=== PATIENT | male | born 1945 | race Caucasian/White ===

== ENCOUNTER → 2016-06-21 | Outpatient (CLI) | payer OTHER ==
[~2016-06-21] MED LIST: ASPI1TAB83 PO; ATOR-26 PO; DILT240C48 PO; FRS/40 PO; HYDR-5688 PO; LSN20 PO; MELO7.5T5 PO; SENNTAB23 PO; TPRSR/50 PO; WARF5TAB90 PO
[2016-06-21 12:26] LABS: HEMATOCRIT 39.5 % (42-52); MEAN CELL VOLUME 98.5 fL (80-100); MEAN CORPUSCULAR HEMOGLOBIN 32.7 pg (25-34); MEAN CORPUSCULAR HGB CONC 33.2 g/dl (32-36); MEAN PLATELET VOLUME 10.9 fL (7.4-10.4); PLATELET COUNT 172 K/uL (130-400); RED BLOOD COUNT 4.01 M/uL (4.7-6.1); WHITE BLOOD COUNT 4.72 K/uL (4.8-10.8)
[2016-06-21 12:50] LABS: ESTIMATED AVERAGE GLUCOSE 111 mg/dl; HA1C FLAG Normal (Normal)
[2016-06-21 13:01] LABS: ALT/SGPT 25 U/L (12-78); AST/SGOT 17 U/L (15-37); BLOOD UREA NITROGEN 11 mg/dl (7-18); BUN/CREATININE RATIO 9.2 (10-20); CALCIUM 8.4 mg/dl (8.5-10.1); CARBON DIOXIDE 25 mmol/L (21-32); CHLORIDE 103 mmol/L (98-107); GLUCOSE 85 mg/dl (70-99); POTASSIUM 3.9 mmol/L (3.5-5.1); SODIUM 140 mmol/L (136-145)
[2016-06-21 13:15] LABS: ALB/GLOB RATIO 1.2 (0.9-2); ALKALINE PHOSPHATASE 93 U/L (45-117); CHOLESTEROL 95 mg/dl (0-200); CHOLESTEROL/HDL RATIO 1.9; HDL CHOLESTEROL 49 mg/dl; LDL CHOLESTEROL CALCULATED 29 mg/dl; THYROID STIMULATING HORMONE 0.835 uIu/ml (0.300-4.500); TRIGLYCERIDES 87 mg/dl (0-150); VERY LOW DENSITY LIPOPROT CALC 17 mg/dl
== END | disposition home or self-care (01) ==
LOC: C.LABBFT 07:33
PROVIDERS: ATTEND Internal Medicine Cardiovascular Disease
DX: R73.01 Impaired fasting glucose (principal); I10 Essential (primary) hypertension; I25.10 Atherosclerotic heart disease of native coronary artery without angina pectoris

== ENCOUNTER → 2017-01-04 | Outpatient (CLI) | payer OTHER ==
[2017-01-04 12:32] LABS: BASO % 0.6 %; BASO ABS # 0.03 K/uL (0-0.2); COMPLETE YES; HEMATOCRIT 41.9 % (42-52); IG% 0.2 %; LYMPH % 17.8 %; LYMPH ABS # 0.85 K/uL (1.2-3.4); MEAN CELL VOLUME 99.3 fL (80-100); MEAN CORPUSCULAR HEMOGLOBIN 33.2 pg (25-34); MEAN CORPUSCULAR HGB CONC 33.4 g/dl (32-36); MEAN PLATELET VOLUME 11.2 fL (7.4-10.4); MONO % 12.6 %; NEUT % 64.8 %; PLATELET COUNT 156 K/uL (130-400); RED BLOOD COUNT 4.22 M/uL (4.7-6.1); WHITE BLOOD COUNT 4.78 K/uL (4.8-10.8)
[2017-01-04 12:48] LABS: ESTIMATED AVERAGE GLUCOSE 111 mg/dl; HA1C FLAG Normal (Normal)
[2017-01-04 12:59] LABS: ALT/SGPT 26 U/L (12-78); BLOOD UREA NITROGEN 19 mg/dl (7-18); BUN/CREATININE RATIO 15.8 (10-20); CALCIUM 8.9 mg/dl (8.5-10.1); CARBON DIOXIDE 32 mmol/L (21-32); CHLORIDE 106 mmol/L (98-107); CHOLESTEROL 97 mg/dl (0-200); GLUCOSE 87 mg/dl (70-99); POTASSIUM 4.2 mmol/L (3.5-5.1); SODIUM 142 mmol/L (136-145); TRIGLYCERIDES 91 mg/dl (0-150); VERY LOW DENSITY LIPOPROT CALC 18 mg/dl
[2017-01-04 13:02] LABS: ALB/GLOB RATIO 1.1 (0.9-2); ALKALINE PHOSPHATASE 100 U/L (45-117); AST/SGOT 24 U/L (15-37); CHOLESTEROL/HDL RATIO 2.1; HDL CHOLESTEROL 46 mg/dl; LDL CHOLESTEROL CALCULATED 33 mg/dl
== END | disposition home or self-care (01) ==
LOC: C.LABBFT 10:39
PROVIDERS: ATTEND Internal Medicine Cardiovascular Disease
DX: I25.10 Atherosclerotic heart disease of native coronary artery without angina pectoris (principal); R73.01 Impaired fasting glucose

== ENCOUNTER → 2017-07-10 | Outpatient (CLI) | payer OTHER ==
[2017-07-10 12:34] LABS: BASO % 0.6 %; BASO ABS # 0.04 K/uL (0-0.2); EOS % 2.7 %; EOS ABS # 0.17 K/uL (0-0.5); HEMATOCRIT 45.9 % (42-52); HEMOGLOBIN 15.1 g/dL (14.0-18.0); IG# 0.01 K/uL (0.00-0.02); LYMPH % 16.5 %; LYMPH ABS # 1.04 K/uL (1.2-3.4); MEAN CELL VOLUME 99.6 fL (80-100); MEAN CORPUSCULAR HEMOGLOBIN 32.8 pg (25-34); MEAN CORPUSCULAR HGB CONC 32.9 g/dl (32-36); MEAN PLATELET VOLUME 11.7 fL (7.4-10.4); MONO % 9.8 %; MONO ABS # 0.62 K/uL (0.11-0.59); NEUT % 70.2 %; NEUT ABS # 4.43 K/uL (1.4-6.5); PLATELET COUNT 178 K/uL (130-400); RED CELL DISTRIBUTION WIDTH CV 12.6 % (11.5-14.5); RED CELL DISTRIBUTION WIDTH SD 45.7 fL (36.4-46.3); WHITE BLOOD COUNT 6.31 K/uL (4.8-10.8)
[2017-07-10 12:52] LABS: HEMOGLOBIN A1C 5.7 % (4.5-5.6)
[2017-07-10 12:54] LABS: ALBUMIN 3.8 gm/dl (3.4-5.0); ALT/SGPT 27 U/L (12-78); AST/SGOT 18 U/L (15-37); BLOOD UREA NITROGEN 17 mg/dl (7-18); CARBON DIOXIDE 29 mmol/L (21-32); CREATININE 1.21 mg/dl (0.60-1.40); GLUCOSE 102 mg/dl (70-99); POTASSIUM 4.1 mmol/L (3.5-5.1); SODIUM 139 mmol/L (136-145)
[2017-07-10 12:57] LABS: ALKALINE PHOSPHATASE 97 U/L (45-117); CHOLESTEROL 142 mg/dl (0-200); LDL CHOLESTEROL CALCULATED 59 mg/dl; TOTAL PROTEIN 7.6 gm/dl (6.4-8.2)
== END | disposition home or self-care (01) ==
LOC: C.LABBFT 08:25
PROVIDERS: ATTEND Internal Medicine
DX: I25.10 Atherosclerotic heart disease of native coronary artery without angina pectoris (principal); R73.01 Impaired fasting glucose

== ENCOUNTER 2022-04-27 05:57 | Inpatient (IN) ==
--- NOTE | 2022-04-10 15:42 | PAT Medication Instructions ---
Medication Instructions Date of Service April 10, 2022 Home Medications Medication Instructions Recorded atorvastatin 80 mg tablet 80 mg PO DAILY #90 tabs 06/17/21 carvedilol 25 mg tablet 25 mg PO BID #180 tabs 06/17/21 diltiazem HCl 240 mg 240 mg PO DAILY #90 caps 06/17/21 capsule,extended release 24 hr lisinopril 40 mg tablet 40 mg PO DAILY #90 tabs 06/17/21 methocarbamol 750 mg tablet 750 mg PO Q6H PRN back spasm #12 08/23/21 tabs cyclobenzaprine 5 mg tablet 5 mg PO TID PRN muscle spasm #12 10/07/21 tabs atorvastatin 80 mg tablet 80 mg PO DAILY carvedilol 25 mg tablet 25 mg PO BID diltiazem HCl 240 mg capsule,extended release 24 hr 240 mg PO DAILY lisinopril 40 mg tablet 40 mg PO DAILY aspirin 81 mg tablet,delayed release 81 mg PO HS furosemide 80 mg tablet (Lasix) See Rx Instructions .Route .COMPLEX warfarin 5 mg tablet See Rx Instructions .Route .COMPLEX methocarbamol 750 mg tablet 750 mg PO Q6H PRN cyclobenzaprine 5 mg tablet 5 mg PO TID PRN Continue as directed atorvastatin 80 mg tablet 80 mg PO DAILY diltiazem HCl 240 mg capsule,extended release 24 hr 240 mg PO DAILY ASK your prescriber and surgeon warfarin 5 mg tablet See Rx Instructions .Route .COMPLEX DO NOT take the morning of surgery lisinopril 40 mg tablet 40 mg PO DAILY furosemide 80 mg tablet (Lasix) See Rx Instructions .Route .COMPLEX methocarbamol 750 mg tablet 750 mg PO Q6H PRN cyclobenzaprine 5 mg tablet 5 mg PO TID PRN Take morning of surgery With a small sip of water, OTHERWISE NOTHING TO EAT OR DRINK AFTER MIDNIGHT: carvedilol 25 mg tablet 25 mg PO BID Take evening before surgery carvedilol 25 mg tablet 25 mg PO BID aspirin 81 mg tablet,delayed release 81 mg PO HS methocarbamol 750 mg tablet 750 mg PO Q6H PRN cyclobenzaprine 5 mg tablet 5 mg PO TID PRN Other Notes If you have any questions please call us at [phone] or [phone] or [phone] or [phone]
--- NOTE | 2022-04-13 11:16 | Anesthesiology Consultation ---
Date of Service April 13, 2022 Assessment & Plan (1) Encounter for pre-operative examination: - Check coags AM DOS (warfarin instructions per surgeon/prescriber) - COVID screening: Per assessment on 04/13: No known COVID-19 positive contacts or current COVID-19 related symptoms. Travel screen negative. Patient vaccinated. At surgeon discretion if preop Covid testing being done. - Cardiology office visit (11/25/21): "Multivessel CAD status post CABG x 3: No angina. Continue high-intensity statin therapy. Continue beta-portillo therapy.. Cardiomyopathy: Likely ischemic in origin. Mildly hypervolemic. Systolic function has normalized following revascularization.. He had hyperkalemia in the past while on spironolactone. Continue medical therapy.. Atrial fibrillation: Permanent atrial fibrillation. Heart rate remains well controlled on current regimen. Asymptomatic. Continue anticoagulation for stroke risk reduction.. He may hold warfarin for 5 days for upcoming pain management procedure. Bridging is not necessary.. Chronic diastolic CHF: Class II. Appears mildly hypervolemic today.. Aortic Stenosis: Non severe. Discussed with patient. Repeat echo in 2-4 years.. Hypertension: Blood pressure top-normal today. Blood pressure at home slightly better. No changes made at this time." Diuretics adjusted. - Preop EKG shows new RBBB compared to previous + LAFB- ? new bifascicular block. Awaiting cardiology workload note response (Dr. Barrera/[facility]). - Awaiting surgeon-ordered PCP preop evaluation ([facility], appt ?04/12 or 04/20). Chart Review Chart Review: Acceptable Risk for Surgery and Patient seen in Pre Admission Testing Consults Requested none Teaching & Discussion Pre-Anesthesia Teaching/Discussion Notes: Instructed NPO after midnight before surgery,except medications with 15 cc of water. Medication instructions provided according to the PAT guidelines. ASA ASA4 Proposed Anesthesia Anesthesia Type: General Anesthesia Line Insertion: Arterial line Risk / Benefits Reviewed With: PT / POA / Parent / Guardian, Accepts Plan and Informed Consent Obtained History Surgery Operation Date: 04/27/22 07:45 Proposed Procedures p L5-S1 Decompression and Fusion, Spinal Cord Monitoring - Gurpreet Flanagan, Height/Weight Height: 5 ft 7 in Weight: 133 kg Allergies Allergy/AdvReac Type Severity Reaction Status Date / Time No Known Allergies Allergy Verified 04/20/22 09:01 Medications Home Medications Medication Instructions Recorded Confirmed Last Taken atorvastatin 80 mg tablet 80 mg PO DAILY #90 tabs 06/17/21 04/27/22 04/26/22 07:00 diltiazem HCl 240 mg 240 mg PO DAILY #90 caps 06/17/21 04/27/22 04/26/22 07:00 capsule,extended release 24 hr lisinopril 40 mg tablet 40 mg PO DAILY #90 tabs 06/17/21 04/27/22 04/26/22 07:00 aspirin 81 mg tablet,delayed 81 mg PO HS 08/12/21 04/27/22 04/26/22 19:30 release warfarin 5 mg tablet 2.5 mg 08/12/21 04/20/22 04/21/22 19:30 carvedilol 25 mg tablet 25 mg PO BID 04/17/22 04/20/22 04/26/22 19:30 tetanus-diphtheria toxoids-Td 2 Lf 0.5 ml IM ONCE #5 mL 04/17/22 04/20/22 Unknown unit-2 Lf unit/0.5 mL IM suspension (TDVAX) furosemide 80 mg tablet (Lasix) See Rx Instructions .Route .COMPLEX 04/19/22 04/20/22 04/25/22 07:00 Active Medications Generic Name Dose Route Start Last Admin Trade Name Kylee PRSiddharth Reason Stop Dose Admin Acetaminophen 1,000 mg 04/27/22 06:00 04/27/22 06:50 Acetaminophen 500 Mg Tab PO 04/27/22 18:00 1,000 mg PREOP ANSHU Administration Celecoxib 200 mg 04/27/22 06:00 04/27/22 06:50 Celebrex 200 Mg Cap PO 04/27/22 18:00 200 mg PREOP ANSHU Administration Gabapentin 300 mg 04/27/22 06:00 04/27/22 06:50 Gabapentin 300 Mg Cap PO 04/27/22 18:00 300 mg PREOP ANSHU Administration Lactated Ringer's 1,000 mls @ 15 mls/hr 04/27/22 06:00 04/27/22 06:30 Lr IV 04/28/22 05:59 15 mls/hr .Q24H ANSHU Administration NPO Date Last Intake of Fluids: 04/26/22 Time Last Intake of Fluids: 22:00 Date Last Intake of Solids: 04/26/22 Time Last Intake of Solids: 18:00 Past Medical History Medical History Aortic stenosis Mild aortic stenosis (ROSAMARIA 1.3cm2, MG 9.2mmhg) per 10/2020 echo Arthritis Atrial fibrillation BPH (benign prostatic hyperplasia) CAD (coronary artery disease) s/p CABG x3 (NAM to LAD, SVG to OM1, SVG to D1/2015) Chronic diastolic HF (heart failure) History of kidney stones HTN (hypertension) Hyperlipidemia Morbid obesity Obstructive sleep apnea "Mild", no device used Tricuspid regurgitation Mild to moderate TR per 10/2020 echo Exercise / Class Metabolic Activity III < 4 Walking/Shop/Light housework Past Family History Family History Other Arthritis Cancer Coronary arteriosclerosis Hypertension No family history of adverse response to anesthesia Past Surgical History Surgical History H/O colonoscopy tubular adenoma, hyperplastic polyp and anal mass of uncertain etiology History of cardiac cath 02/2015 > referred for CABG History of cataract surgery RT/LEFT History of lithotripsy History of open reduction and internal fixation (ORIF) procedure RT FEMUR History of surgery Kidney stone extraction History of tonsillectomy History of tooth extraction S/P CABG x 3 NAM to LAD, SVG to OM1, SVG to D1 ([facility] [place], 2015) Past Anesthesia History No Hx of Anesthesia Complications and No Family Hx of Anesthesia Complications History of PONV No Hx of PONV and No Hx of Motion Sickness Social History Smoking Status: Never smoker Do You Dip or Chew Tobacco: No Hx Alcohol Use: No Hx Substance Use: No substance use type: does not use Review of Systems Patient denies chest pain, shortness of breath, dyspnea on exertion, fever, chills, cough, wheezing, palpitations. Physical Exam Vital Signs Last Vital Signs Temp 36.4 C L 04/27/22 06:38 Pulse 96 H 04/27/22 06:38 Resp 20 04/27/22 06:38 BP 170/108 H 04/27/22 06:38 Pulse Ox 94 04/27/22 06:38 O2 Del Method 04/27/22 06:38 VITALS BP 160/95 P 77 TEMP 97.7 SP02 96%RA RESP 16 PHYSICAL Full cervical extension range of motion. Full TMJ range of motion. TMD 4 finger breaths Mallampati Score 1 Dentition: full upper plate Lungs: clear throughout to auscultation Cardiac: regular rate, irregular rhythm, no murmurs noted Spine: normal Carotid arteries: negative bruit Extremities: no edema Short neck Constitutional + morbidly obese; no acute distress ENMT Mouth: + dentition abnormality and + dentures Thyromental Distance: > or= 3.5 Finger Breadths Mallampati Class: II Neck normal visual inspection and trachea midline; neck extension not limited Respiratory + uses accessory muscles Auscultation: + diminished lung sounds and + wheezes Cardiovascular Rate/Rhythm: + abnormal rate (afib) and + abnormal rhythm (afib) Heart Sounds: + murmur (RUSB, 1-2/6) Vessels: no carotid bruit Musculoskeletal Spine: normal cervical ROM and no pain with cervical ROM Extremities: extremities normal to inspection; full ROM of extremities Neurologic moves all extremities Motor/Sensory: no sensory deficit Psychiatric Orientation: alert and oriented x 3 Lab Results Anesthesia Preop Results Results Anesthesia Widget: WBC 6.00 K/ul (4.8-10.8) 04/13/22 Hgb 15.0 g/dl (14.0-18.0) 04/13/22 Hct 44.9 % (40.1-51.0) 04/13/22 Plt 160 K/uL (130-400) 04/13/22 Na 140 mmol/L (136-145) 04/13/22 K 4.6 mmol/L (3.5-5.1) 04/13/22 Cl 101 mmol/L (98-107) 04/13/22 CO2 34 mmol/L (21-32) H 04/13/22 BUN 17 mg/dl (6-23) 04/13/22 Creat 1.26 mg/dl (0.6-1.4) 04/13/22 Glucose Level 97 mg/dl (70-99(Fasting)) 04/13/22 PT 11.3 Seconds (9.0-12.0) 04/27/22 PTT 27.9 Seconds (21.0-31.0) 04/27/22 INR 1.1 (0.9-1.1) 04/27/22 HA1c 5.6 % (4.5-5.6) 04/17/22 Urine Color Yellow 04/13/22 Urine Appearance Clear (Clear) 04/13/22 Urine pH 6.5 (4.5-7.5) 04/13/22 Urine Specific [place] 1.007 (1.000-1.030) 04/13/22 Urine Protein Negative (Negative) 04/13/22 Urine Glucose (UA) Negative (Negative) 04/13/22 Urine Ketones Negative (Negative) 04/13/22 Urine Blood Negative (Negative) 04/13/22 Urine Nitrite Negative (Negative) 04/13/22 Urine Bilirubin Negative (Negative) 04/13/22 Urine Urobilinogen Negative (Negative) 04/13/22 Urine Leukocyte Esterase Negative (Negative) 04/13/22 SARS-CoV-2, RNA, NAAT NEGATIVE (NEGATIVE) 04/27/22 Blood Type O Positive 04/13/22 Antibody Screen NEGATIVE 04/13/22 Testing Laboratory Results PT 11.3 Seconds (9.0-12.0) 04/27/22 06:15 INR 1.1 (0.9-1.1) 04/27/22 06:15 APTT 27.9 Seconds (21.0-31.0) 04/27/22 06:15 Electrocardiogram Date: 04/13/22 A. fib at 71 bpm. LAFB. RBBB. LVH. Chest X-Ray Date: 04/13/22 FINDINGS: PA and lateral chest radiographs are compared to study dated 03/04/2018 and correlated with chest CT dated 01/31/2015. The patient is status post midline sternotomy. The heart is enlarged noting atherosclerotic calcification of the thoracic aorta. The pulmonary vasculature is noncongested. Chronic interstitial thickening is similar to previous. The lungs and pleural spaces are clear noting bibasilar scarring/atelectasis. There is no pneumothorax. The skeletal structures are osteopenic. The bony thorax appears intact. A peripherally calcified splenic cyst is again seen in the left upper quadrant. IMPRESSION: Cardiomegaly with no active disease in the chest. Echocardiogram Date: 10/28/20 EF 55-60%. No RWMA. Moderate cLVH. Mild RVD. Moderate biatrial dilation. Mild aortic stenosis (ROSAMARIA 1.3cm2, MG 9.2mmhg). Mild to moderate TR. No significant change compared to prior study 02/21/2018 per report. Cardiac Catheterization Date: 03/18/15 Left heart catheterization: 1. Left ventriculogram was not performed given recent adequate echo images. 2. No significant aortic stenosis. Peak to peak gradient across the aortic valve was 0. 3. Normal LVEDP; 9 mm Hg. Right heart catheterization: 1. Normal pulmonary capillary wedge pressure. V-wave 21/mean 11mmHg. 2. No significant pulmonary hypertension. PA pressure 30/14 with a mean of 19 mm Hg. 3. Normal right ventricular pressure. 30/2 with EDP 10 mmHg. 4. Normal right atrial pressure. A-wave 8/V-wave 11/mean 5 mmHg. Notes: Tortuous right subclavian/innominate artery. Procedure was completed via the right radial artery, but manipulation of the catheter was difficult. No complication. Impression: Multivessel CAD. Normal filling pressures. No aortic stenosis. Normal cardiac output. > *Subsequent CABG performed* COVID-19 Risk Screen Screening Information COVID-19 Screen Date: 04/13/22 Exposure 21 Days Family/Household +COVID Last 21 Days: No Exposure 10 Days Any COVID Exposure Last 10 Days: No Symptoms Last 10 Days Experienced COVID Sx Last 10 Days: No + COVID 0-90 Days COVID + in Last 0-90 Days: No
[2022-04-27] MEDS ORDERED: GABAPENTIN 300 MG CAP PO SCH (06:00)
[2022-04-27] MEDS ORDERED: LR 15ML/HR IV SCH (06:00)
[2022-04-27] MEDS ORDERED: ACETAMINOPHEN 500 MG TAB PO SCH (06:00)
[2022-04-27] MEDS ORDERED: CeleBREX 200 MG CAP PO SCH (06:00)
[2022-04-27 06:37] LABS: INR 1.1 (0.9-1.1); Partial Thromboplastin Time 27.9 Seconds (21.0-31.0); Prothrombin Time 11.3 Seconds (9.0-12.0)
[2022-04-27] MEDS ORDERED: DEXAMETHASONE SOD INJ 4 MG/ML VIAL ONE (07:10)
[2022-04-27] MEDS ORDERED: ONDANSETRON INJ 2 MG/ML 2 ML VIAL ONE ×2 (07:10→09:01)
[2022-04-27] MEDS ORDERED: NEOSTIGMINE METHYLSULFATE 1 MG/ML 10ML VIAL ONE (07:10)
[2022-04-27] MEDS ORDERED: GLYCOPYRROLATE 0.2 MG/ML VIAL ONE (07:10)
[2022-04-27] MEDS ORDERED: PROPOFOL IV EMULSION 10 MG/ML 20 ML VIAL IV ONE (07:10)
[2022-04-27] MEDS ORDERED: fentaNYL citrate 100 MCG/2 ML VIAL ONE (07:11)
[2022-04-27] MEDS ORDERED: LIDOCAINE 2% MPF LOCAL 5 ML VIAL INFIL ONE (07:17)
[2022-04-27] MEDS ORDERED: ROCURONIUM BROMIDE 10 MG/ML 5 ML VIAL IV ONE ×3 (07:17→09:01)
[2022-04-27] MEDS ORDERED: LARYING-O-JET KIT (LTA) ONE (07:17)
--- NOTE | 2022-04-27 07:41 | History & Physical Bridge Note ---
Date of Service April 27, 2022 History & Physical Bridge Note I have examined the patient, reviewed the History & Physical and in the interval since the performance of the History & Physical I have noted the following changes of clinical significance: no changes noted
--- NOTE | 2022-04-27 07:42 | History & Physical Report ---
Date of Service April 27, 2022 Assessment & Plan (1) Neurogenic claudication due to lumbar spinal stenosis: Plan: L5-S1 decompression and fusion, possible L4-L5 History of Present Illness Chief Complaint: Back and leg pain Primary Care Provider: Anika Hyman MD This is a 69-year-old male presents with chronic persistent back and leg pain. Failing course of nonoperative care is here for surgical invention. Allergies Allergy/AdvReac Type Severity Reaction Status Date / Time No Known Allergies Allergy Verified 04/20/22 09:01 Home Medications Medication Instructions Recorded Confirmed Type atorvastatin 80 mg tablet 80 mg PO DAILY #90 tabs 06/17/21 04/27/22 Rx diltiazem HCl 240 mg 240 mg PO DAILY #90 caps 06/17/21 04/27/22 Rx capsule,extended release 24 hr lisinopril 40 mg tablet 40 mg PO DAILY #90 tabs 06/17/21 04/27/22 Rx aspirin 81 mg tablet,delayed 81 mg PO HS 08/12/21 04/27/22 History release warfarin 5 mg tablet 2.5 mg 08/12/21 04/20/22 History carvedilol 25 mg tablet 25 mg PO BID 04/17/22 04/20/22 History tetanus-diphtheria toxoids-Td 2 Lf 0.5 ml IM ONCE #5 mL 04/17/22 04/20/22 Rx unit-2 Lf unit/0.5 mL IM suspension (TDVAX) furosemide 80 mg tablet (Lasix) See Rx Instructions .Route .COMPLEX 04/19/22 04/20/22 History Past Med/Surg History Medical History Aortic stenosis Mild aortic stenosis (ROSAMARIA 1.3cm2, MG 9.2mmhg) per 10/2020 echo Arthritis Atrial fibrillation BPH (benign prostatic hyperplasia) CAD (coronary artery disease) s/p CABG x3 (NAM to LAD, SVG to OM1, SVG to D1/2016) Chronic diastolic HF (heart failure) History of kidney stones HTN (hypertension) Hyperlipidemia Morbid obesity Obstructive sleep apnea "Mild", no device used Tricuspid regurgitation Mild to moderate TR per 10/2020 echo Surgical History H/O colonoscopy tubular adenoma, hyperplastic polyp and anal mass of uncertain etiology History of cardiac cath 02/2015 > referred for CABG History of cataract surgery RT/LEFT History of lithotripsy History of open reduction and internal fixation (ORIF) procedure RT FEMUR History of surgery Kidney stone extraction History of tonsillectomy History of tooth extraction S/P CABG x 3 NAM to LAD, SVG to OM1, SVG to D1 ([facility] [place] [place], 2016) Family History Other Arthritis Cancer Coronary arteriosclerosis Hypertension No family history of adverse response to anesthesia Social History (Updated 04/08/21 @ 15:04 by Janice Doe LPN) Smoking Status: Never smoker Tobacco Type: Cigarettes Second Hand Exposure: Yes ( A CHILD); Do You Dip or Chew Tobacco: No; Hx Alcohol Use: No Hx Substance Use: No Preferred Language: Swedish Records Analysis Manager Required: No Beliefs That Will Affect Care: None marital status: Current Living Situation: Significant Other current occupational status: retired Feels Safe at Home: Yes Safety Concerns: Feels Safe At This Time caffeine: No Dental Care, Regularly: No Physical Activity Frequency: 3-4 Times per Week Physical Activity Frequency Comment: Active, goes camping and walking Assistive Devices: Denture - Upper, Glasses and Walker Physical Exam Physical Exam: Patient is alert and oriented Heart regular rhythm Lungs clear Results & Data Results & Data ([facility]) Vital Signs (Past 12 Hours) Vital Signs Temp Pulse Resp BP Pulse Ox O2 Del Method 04/27/22 06:38 36.4 C L 96 H 20 170/108 H 94 Room Air
[2022-04-27] MEDS ORDERED: ceFAZolin 330 MG/ML 1 GM VIAL ONE (07:43)
[2022-04-27] MEDS ORDERED: BUPIVACAINE/EPINEPHRINE 0.5% MPF 1:200,000 30 ML VIAL ONE (07:43)
[2022-04-27] MEDS ORDERED: PHENYLEPHRINE 100MCG/ML 5ML SYR ONE (08:37)
[2022-04-27] MEDS ORDERED: PHENYLEPHRINE HCL 10 MG/ML VIAL ONE (08:37)
[2022-04-27] MEDS ORDERED: ALBUMIN HUMAN 5% 12.5 GM/250 ML VIAL IV ONE (08:50)
[2022-04-27] MEDS ORDERED: FLOSEAL HEMOSTATIC MATRIX 10ML TOP ONE (08:51)
[2022-04-27] MEDS ORDERED: SUGAMMADEX SODIUM 200 MG/2 ML VIAL IV ONE (08:51)
[2022-04-27] MEDS ORDERED: ePHEDrine sulfate 50 MG/ML AMP IV PRN (09:12)
[2022-04-27] MEDS ORDERED: PROMETHAZINE HCL 12.5 MG in SODIUM CHLORIDE 0.9% 50 ML IV PRN ×2 (09:12→12:15)
[2022-04-27] MEDS ORDERED: LABETALOL HCL IV 5 MG/ML 20ML IV PRN (09:12)
[2022-04-27] MEDS ORDERED: FLUMAZENIL 0.1 MG/1 ML 10 ML VIAL IV PRN (09:12)
[2022-04-27] MEDS ORDERED: ONDANSETRON INJ 2 MG/ML 2 ML VIAL IV PRN ×2 (09:12→12:15)
[2022-04-27] MEDS ORDERED: HYDROmorphone INJ 1 MG/ML SYRINGE IV PRN ×2 (09:12→12:15)
[2022-04-27] MEDS ORDERED: ATROPINE SULFATE 0.1 MG/ML 10ML SYR IV PRN (09:12)
[2022-04-27] MEDS ORDERED: NALOXONE HCL 0.4 MG/1 ML VIAL/CARP IV PRN ×2 (09:12→12:15)
[2022-04-27] MEDS ORDERED: fentaNYL citrate 100 MCG/2 ML VIAL IV PRN (09:12)
[2022-04-27 10:05] LABS: iSTAT Creatinine 1.1 mg/dl (0.6-1.3); iSTAT Hemoglobin 11.9 g/dl (14.0-18.0); iSTAT Ionized Calcium 1.11 mmol/l (1.12-1.32)
--- NOTE | 2022-04-27 10:30 | Operative Report ---
Post Operative Report Pre & Post Diagnosis Operation Date: 04/27/22 07:45 Pre-Op Diagnosis: L4-5 foraminal disc herniation, L5-S1 spondylolisthesis, lumbar spinal stenosis with neurogenic claudication, morbid obesity, Post-Op Diagnosis: Same I identified the patient and participated in the time-out.: Yes Procedure Operation Date: 04/27/22 07:45 Actual Procedures #1 lumbar decompression bilateral facetectomies and foraminotomies L3-L4, L4-5 and L5-S1. #2 posterior spinal fusion L4-L5 L5-S1. #3 placement posterior instrumentation L4-L5 L5-S1. #4 interbody fusion L4-L5 L5-S1. #5 placement of Spira 15 x 26 mm cage at L4-L5 L5-S1. #6 placement locally harvested morselized autograft and posterior gutters. #7 placement of I factor combined with V toss interbody space and posterior gutters. Surgeon Gurpreet Flanagan, DO [employer] Tender Vinnie Bashir Estimated Blood Loss 1,200 Findings See Below The patient is 5 foot 7 weighing over 134 kg with a BMI in excess of 46 this combined with an EBL of greater than 1200 cc created significant technical difficulty requiring at least 75% increase in the operative time. Specimens None Indications This is a 69-year-old male who presents with emergent diagnosis of failed course of nonoperative care is here for surgical invention. Description of Procedure Patient was met with identified informed consent obtained. Patient was then taken to the operative suite underwent a patient placed in a prone position the [place] table top Tomasz frame. All bony prominences well-padded eyes inspected to ensure no external pressure placed upon the. This point lumbar spine was prepped and draped no sterile fashion. Sharp dissection with the assistance of bradycardia from down to and exposing the lamina and transverse processes of L4- L5 and sacral ala bilaterally. Obvious bilateral L5 pars defect identified a complete laminectomy L5 L4 and partial laminectomy L3 was performed including bilateral medial facetectomies and foraminotomies addressing all spinal stenosis. Also had to perform a complete facetectomy at L4-L5 on the right to remove the foraminal and extraforaminal disc herniation creating significant compression of the L4 nerve root. This subsequently created iatrogenic instability requiring fusion at this level. After this complete pedicle screws were placed at L4-L5 and S1 levels bilaterally with assistance of fluoroscopy and the proper sized jamia contoured and placed. By way the transforaminal approach on the right a complete discectomy of L4-L5 was performed endplates curetted to subcortically bone and a 15 x 26 mm spiral cage filled with I factor tapped in position. Then proceeded to L4-L5 again by way of a transforaminal portion right performed endplates curetted to subcortically bone and again a 15 x 26 mm spiral cage with I factor tapped in position. At the procedure L5-S1. Again complete discectomy formed by way of a transforaminal approach to the right. Endplates. To subcortically bone and a 15 x 26 mm spiral cage with I factor tapped in position. Rods were then compressed locked in final position bilaterally. The transverse processes of L4-L5 and sacral ala burred to subcortical bleeding bone. I factor model V toss and locally harvested morselized autograft was placed in the posterior gutters. 15 round NANETTE drain inserted. The incision was then closed with 1 Vicryl the fascia 2-0 Vicryl subcutaneously and 4 Monocryl for final skin closure. Steri-Strips dressings placed. Patient waken taken to PACU in stable condition. Please note spinal cord monitoring was utilized at the procedure no changes noted. Lastly Vinnie Bashir was present at the entire surgeon while the patient positioning complex portion of the surgery and final skin closure. I attest to the content of the Intraoperative Record and any orders documented therein. Any exceptions are noted below.
[2022-04-27] MEDS ORDERED: SODIUM CHLORIDE 0.9% 50 ML BAG ONE (11:04)
[2022-04-27] MEDS ORDERED: PROMETHAZINE HCL INJ 25 MG/ML 1 ML VIAL ONE (11:05)
[2022-04-27 11:23] LABS: Hematocrit (blood only) 35.7 % (40.1-51.0); Hemoglobin 11.9 g/dl (14.0-18.0)
--- NOTE | 2022-04-27 11:29 | Fluoroscopy Report ---
FL lumbar spine 2-3V CLINICAL HISTORY: L5-S1 DECOMP/FUSION TECHNIQUE: 2 views were obtained with the C-arm in the OR with the above procedure. Total fluoroscopy time was 32.1 seconds. Radiation dose was 32.96 mGy. Comparison: None available at the time of this dictation. FINDINGS/IMPRESSION: Intraoperative images were obtained of L4-S1 decompression and fusion. Please correlate with intraoperative fluoroscopy and operative report. ACT 112: Negative or not required by law. Electronically signed by: Travis Beltran M.D. 04/27/2022 11:27 AM
[2022-04-27] MEDS ORDERED: SODIUM CHLORIDE 0.9% 1000ML 1,000 ML IV SCH (12:15)
[2022-04-27] MEDS ORDERED: FAMOTIDINE 20 MG TAB PO PRN (12:15)
[2022-04-27] MEDS ORDERED: ALUMINUM/MAGNESIUM SUSP 30 ML UDC PO PRN (12:15)
[2022-04-27] MEDS ORDERED: DO NOT ADMINISTER PNEUMOCOCCAL VACCINE PRN (12:15)
[2022-04-27] MEDS ORDERED: MAGNESIUM HYDROXIDE SUSP 30 ML UDC PO PRN (12:15)
[2022-04-27] MEDS ORDERED: HYDROmorphone INJ 0.5 MG/0.5 ML SYR IV PRN (12:15)
[2022-04-27] MEDS ORDERED: DO NOT ADMINISTER FLU VACCINE PRN (12:15)
[2022-04-27] MEDS ORDERED: diphenhydrAMINE Capsule 25 MG CAP PO PRN (12:15)
[2022-04-27] MEDS ORDERED: LORazepam 0.5 MG TAB PO PRN (12:15)
[2022-04-27] MEDS ORDERED: METOCLOPRAMIDE HCL INJ 5 MG/ML 2 ML VIAL IV PRN (12:15)
[2022-04-27] MEDS ORDERED: oxyCODONE HCL IR 5 MG TAB (IMMEDIATE RELEASE) PO PRN (12:15)
[2022-04-27] MEDS ORDERED: ACETAMINOPHEN 500 MG TAB PO PRN (12:15)
[2022-04-27] MEDS ORDERED: traMADol HCL 50 MG TABLET PO PRN (12:15)
[2022-04-27] MEDS ORDERED: hydrOXYzine HCl 25 MG TAB PO PRN (12:15)
[2022-04-27] MEDS ORDERED: SOD PHOSPHATE/SOD BIPHOSPHATE ENEMA 132 ML BTL PR PRN (12:15)
[2022-04-27] MEDS ORDERED: bisacodyL 10 MG SUPP PR PRN (12:15)
[2022-04-27] MEDS ORDERED: ONDANSETRON 4 MG OD TAB PO PRN (12:15)
[2022-04-27] MEDS ORDERED: LORazepam 2 MG/1 ML VIAL IV PRN (12:15)
[2022-04-27] MEDS ORDERED: ACETAMINOPHEN 1,000 MG/100 ML VIAL IV PRN (12:15)
--- NOTE | 2022-04-27 12:42 | Anesthesiology Progress Note ---
Date of Service April 27, 2022 Anesthesia Post Procedure Vital Signs Vital Signs: Temp Pulse Pulse Resp BP BP Pulse Ox 04/27/22 12:15 36.6 C 83 15 154/89 H 98 04/27/22 12:00 90 16 142/94 H 95 04/27/22 11:50 36.9 C 87 20 161/94 H 95 04/27/22 11:20 91 H 20 180/84 H 150/95 H 97 04/27/22 11:10 88 20 150/92 H 136/90 97 04/27/22 11:40 86 18 159/92 H 97 04/27/22 11:30 88 20 169/89 H 141/92 H 97 04/27/22 11:00 83 16 178/93 H 152/107 H 96 04/27/22 10:55 36.1 C L 84 16 174/103 H 96 04/27/22 06:38 36.4 C L 96 H 20 170/108 H 94 O2 Del Method O2 Flow Rate 04/27/22 12:15 Nasal Cannula 2 04/27/22 12:00 Nasal Cannula 2 04/27/22 11:50 Nasal Cannula 2 04/27/22 11:20 Room Air 04/27/22 11:10 Oxymask 3 04/27/22 11:40 Nasal Cannula 2 04/27/22 11:30 Nasal Cannula 2 04/27/22 11:00 Oxymask 6 04/27/22 10:55 Oxymask 6 04/27/22 06:38 Room Air Pain Intensity Lower Back: Pain Intensity: 3 Right Thigh: Pain Intensity: 3 Transfer of Care Handoff Completed per policy Notes Mental Status: alert / awake / arousable Patient Amnestic to Procedure: Yes Nausea / Vomiting: adequately controlled Pain: adequately controlled Airway Patency, RR, SpO2: stable & adequate BP & HR: stable & adequate Hydration State: stable & adequate Anesthetic Complications: no major complications apparent
--- NOTE | 2022-04-27 13:33 | Hospitalist Consultation ---
Date of Consultation April 27, 2022 Assessment & Plan (1) Lumbar back pain with radiculopathy affecting right lower extremity: Patient underwent L4-S1 decompression fusion Dr. Flanagan 04/27 with EBL of 1.2 L will check hgb in the evening of reportedly pt did not take any meds this am and only took an aspirin last night (2) Chronic diastolic HF (heart failure): Patient has a history of stable chronic diastolic heart failure typically on Coreg 25 twice daily diltiazem 240 daily Lasix 80 a day. These medications will be continued. 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 At 1 point time the patient will need to be begin his warfarin therapy for his atrial fibrillation thromboembolic prophylaxis. Until that end we will use teds and SCDs History of Present Illness Attending Physician: Gurpreet Flanagan, History of Present Illness 77-year-old male who underwent L4-S1 decompression fusion by Dr. Flanagan on 04/27/2022. Pertinent medical problems include coronary artery disease, atrial fibrillation on warfarin therapy, chronic diastolic heart failure and aortic stenosis (mild) on daily Lasix therapy and BPH. Patient was wrist optimized by both primary care and cardiology before surgery. Patient reportedly had 1.2 L blood loss during the surgery per operative note Allergies Allergy/AdvReac Type Severity Reaction Status Date / Time No Known Allergies Allergy Verified 04/20/22 09:01 Home Medications Medication Instructions Recorded Confirmed Type atorvastatin 80 mg tablet 80 mg PO DAILY #90 tabs 06/17/21 04/27/22 Rx diltiazem HCl 240 mg 240 mg PO DAILY #90 caps 06/17/21 04/27/22 Rx capsule,extended release 24 hr lisinopril 40 mg tablet 40 mg PO DAILY #90 tabs 06/17/21 04/27/22 Rx aspirin 81 mg tablet,delayed 81 mg PO HS 08/12/21 04/27/22 History release warfarin 5 mg tablet 2.5 mg 08/12/21 04/20/22 History carvedilol 25 mg tablet 25 mg PO BID 04/17/22 04/20/22 History tetanus-diphtheria toxoids-Td 2 Lf 0.5 ml IM ONCE #5 mL 04/17/22 04/20/22 Rx unit-2 Lf unit/0.5 mL IM suspension (TDVAX) furosemide 80 mg tablet (Lasix) See Rx Instructions .Route .COMPLEX 04/19/22 04/20/22 History Patient History Medical History Aortic stenosis Mild aortic stenosis (ROSAMARIA 1.3cm2, MG 9.2mmhg) per 10/2020 echo Arthritis Atrial fibrillation BPH (benign prostatic hyperplasia) CAD (coronary artery disease) s/p CABG x3 (NAM to LAD, SVG to OM1, SVG to D1/2015) Chronic diastolic HF (heart failure) History of kidney stones HTN (hypertension) Hyperlipidemia Morbid obesity Obstructive sleep apnea "Mild", no device used Tricuspid regurgitation Mild to moderate TR per 10/2020 echo Surgical History H/O colonoscopy tubular adenoma, hyperplastic polyp and anal mass of uncertain etiology History of cardiac cath 02/2015 > referred for CABG History of cataract surgery RT/LEFT History of lithotripsy History of open reduction and internal fixation (ORIF) procedure RT FEMUR History of surgery Kidney stone extraction History of tonsillectomy History of tooth extraction S/P CABG x 3 NAM to LAD, SVG to OM1, SVG to D1 ([facility] [place], 2015) Family History Other Arthritis Cancer Coronary arteriosclerosis Hypertension No family history of adverse response to anesthesia Social History (Updated 04/08/21 @ 15:04 by Janice Doe LPN) Smoking Status: Never smoker Tobacco Type: Cigarettes Second Hand Exposure: Yes ( A CHILD); Do You Dip or Chew Tobacco: No; Hx Alcohol Use: No Hx Substance Use: No Preferred Language: Slovenian Through Operator Required: No Beliefs That Will Affect Care: None marital status: Current Living Situation: Significant Other current occupational status: retired Feels Safe at Home: Yes Safety Concerns: Feels Safe At This Time caffeine: No Dental Care, Regularly: No Physical Activity Frequency: 3-4 Times per Week Physical Activity Frequency Comment: Active, goes camping and walking Assistive Devices: Denture - Upper, Glasses and Walker Review of Systems Review of Systems: Mild distress and fatigue no headache, no visual changes no speech or swallowing issues no chest pain, pressure or palpitations no shortness of breath, cough or wheezes no abdominal pain, nausea or vomiting, diarrhea or constipation no dysuria, hematuria or frequency no focal joint pain or swelling no back pain, CVA tenderness or radicular pain no bruising, bleeding or rashes no focal signs of weakness or numbness or altered sensation no complaints of anxiety or depression.. Physical Exam Physical Exam: The patient appeared well nourished and normally developed. Vital signs as documented. Head exam is normocephalic atraumatic Neck is without JVD, thyromegaly, or carotid bruits. Lungs are clear to auscultation, no focal loss of breath sounds Cardiac exam, Rhythm is regular.. No murmurs, rubs or gallops. Abdominal exam reveals normal bowel sounds, soft non tender, no masses Extremities are nonedematous and both pedal pulses are present Neurologic exam is alert and oriented, no focal loss of strength or sensation Skin is without bruises or rashes Psychologically is without concerns for anxiety or depression.. Results & Data Results & Data ([facility]) Vital Signs (Past 12 Hours) Vital Signs Temp Pulse Pulse Resp BP BP Pulse Ox 04/27/22 13:16 97.5 F L 87 16 157/89 H 98 04/27/22 12:45 97.9 F 90 16 173/92 H 97 04/27/22 12:15 97.9 F 83 15 154/89 H 98 04/27/22 12:00 90 16 142/94 H 95 04/27/22 11:50 98.4 F 87 20 161/94 H 95 04/27/22 11:20 91 H 20 180/84 H 150/95 H 97 04/27/22 11:10 88 20 150/92 H 136/90 97 04/27/22 11:40 86 18 159/92 H 97 04/27/22 11:30 88 20 169/89 H 141/92 H 97 04/27/22 11:00 83 16 178/93 H 152/107 H 96 04/27/22 10:55 97.0 F L 84 16 174/103 H 96 04/27/22 06:38 97.5 F L 96 H 20 170/108 H 94 O2 Del Method O2 Flow Rate 04/27/22 13:16 Nasal Cannula 2 04/27/22 12:45 Room Air, Nasal Cannula 2 04/27/22 12:15 Nasal Cannula 2 04/27/22 12:00 Nasal Cannula 2 04/27/22 11:50 Nasal Cannula 2 04/27/22 11:20 Room Air 04/27/22 11:10 Oxymask 3 04/27/22 11:40 Nasal Cannula 2 04/27/22 11:30 Nasal Cannula 2 04/27/22 11:00 Oxymask 6 04/27/22 10:55 Oxymask 6 04/27/22 06:38 Room Air PG Care Time/CCT Total # of Minutes Spent Total Time Spent with Patient: Total time spent is greater than 50% in coordination of care (as documented) at patient's floor/unit and/or counseling patient: Coding Level of Care Code 04680 Inpt Consult Level 4 Diagnoses Lumbar back pain with radiculopathy affecting right lower extremity M54.16 Chronic diastolic HF (heart failure) I50.32 Aortic stenosis I35.0 S/P CABG x 3 Z95.1 Atrial fibrillation I48.91 Benign enlargement of prostate N40.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
[2022-04-27] MEDS ORDERED: carvediloL 12.5 MG TAB PO ONE (13:55)
[2022-04-27] MEDS ORDERED: dilTIAZem HCL 120 MG CAPCR PO ONE (13:56)
[2022-04-27] MEDS ORDERED: dilTIAZem HCl 60 MG TAB PO ONE (13:58)
[2022-04-27] MEDS: SODIUM CHLORIDE 0.9% 1000ML 1,000 ML IV SCH ×2 (14:24→22:51)
[2022-04-27] MEDS: ceFAZolin 2000MG 2,000 MG/15 ML SYR IV SCH (16:45)
[2022-04-27] MEDS: DOCUSATE SODIUM/SENNA 50/8.6MG TAB PO SCH (21:04)
[2022-04-27] MEDS: ASPIRIN 81 MG ECTAB PO SCH (21:04)
[2022-04-28] MEDS: ceFAZolin 2000MG 2,000 MG/15 ML SYR IV SCH (01:42)
[2022-04-28] MEDS: POLYETHYLENE (MIRALAX) 17 GM PACK PO SCH ×3 (06:12→20:42)
[2022-04-28 07:43] LABS: BUN Creatinine Ratio 23.2 (10-20); Calcium 8.1 mg/dl (8.5-10.1); Creatinine Clr Calc Pharmacy 84.8 ml/min; Est GFR (African American) 88.5 ml/min; Est GFR (Non-African American) 76.4 ml/min
[2022-04-28 07:47] LABS: Basophils # (auto) 0.01 K/uL (0-0.2); Basophils % (auto) 0.1 %; Hematocrit (blood only) 30.2 % (40.1-51.0); Hemoglobin 10.1 g/dl (14.0-18.0); Immature Granulocytes # (auto) 0.06 K/uL (0.00-0.02); Immature Granulocytes % (auto) 0.4 %; Lymphocytes # (auto) 0.56 K/uL (1.2-3.4); Lymphocytes % (auto) 4.1 %; Mean Corpuscular Hemoglobin 33.3 pg (25.0-34.0); Mean Corpuscular Hgb Conc 33.4 g/dL (32.0-36.0); Mean Corpuscular Volume 99.7 fL (80.0-100.0); Mean Platelet Volume 11.1 fL (9.4-12.4); Monocytes # (auto) 0.78 K/uL (0.24-0.82); Monocytes % (auto) 5.8 %; Neutrophils # (auto) 12.09 K/uL (1.4-6.5); Neutrophils % (auto) 89.6 %; Ovalocytes 1+; Platelet Count 124 K/uL (130-400); RDW Coefficient of Variation 12.6 % (11.5-14.5); RDW Standard Deviation 45.5 fL (36.4-46.3); Red Blood Count 3.03 M/uL (4.63-6.08)
[2022-04-28] MEDS ORDERED: lisinopril 40 MG TAB PO SCH (09:00)
[2022-04-28] MEDS: lisinopril 20 MG TAB PO SCH (09:03)
[2022-04-28] MEDS: ATORVASTATIN 40 MG TAB PO SCH (09:03)
[2022-04-28] MEDS: dilTIAZem HCL 240 MG CAPCR PO SCH (09:03)
[2022-04-28] MEDS: dexAMETHasone 6 MG in SYRINGE 0 ML IV SCH (09:04)
--- NOTE | 2022-04-28 10:19 | Orthopedic Progress Note ---
Date of Service April 28, 2022 Assessment & Plan (1) Neurogenic claudication due to lumbar spinal stenosis: Plan: At this time continue physical therapy monitor his NANETTE output hopefully discharge home this weekend. Admission and Anticipated Discharge Date Admission Date: April 27, 2022 Subjective Patient's back pain is controlled leg symptoms markedly improved Physical Exam Physical Exam: Patient is in the chair at the bedside. Is good strength testing. Appears comfortable. Results & Data ([facility]) Vital Signs (Past 12 Hours) Vital Signs Temp Pulse Resp BP Pulse Ox O2 Del Method O2 Flow Rate 04/28/22 08:00 Room Air 04/28/22 07:05 36.6 C 83 16 153/85 H 93 Room Air 04/28/22 02:25 36.5 C 80 18 134/78 98 Nasal Cannula 2 04/27/22 22:39 36.7 C 65 18 128/76 97 Nasal Cannula 2
--- NOTE | 2022-04-28 10:47 | Hospitalist Progress Note ---
Date of Service April 28, 2022 Assessment & Plan (1) Lumbar back pain with radiculopathy affecting right lower extremity: Plan: Patient underwent L4-S1 decompression fusion Dr. Flanagan 04/27 with EBL of 1.2 L H&H Remains stable Reports that his Coumadin is managed by Cardiology and they had formulated his preoperative plan. Will restart PO Coumadin when approved by ortho spine. Most likely would be okay to start on 04/29 (2) Chronic diastolic HF (heart failure): Plan: Patient has a history of stable chronic diastolic heart failure typically on Coreg 25 twice daily diltiazem 240 daily Lasix 120 mg twice daily. These medications will be continued. Patient hemodynamically stable. Restart home Lasix this evening Follow daily weights, volume status (3) Aortic stenosis: Plan: His aortic stenosis is defined as mild with a valve area of 1.3 cm on last echocardiogram which was October 2020 Follow with cardiology as an outpatient (4) S/P CABG x 3: Plan: Patient has no prehospital anginal symptoms he typically takes aspirin atorvastatin and antihypertensive treatment as listed above (5) Atrial fibrillation: Plan: Permanent atrial fibrillation Prehospital patient was atrial fibrillation controlled ventricular rate on coreg 25 mg and warfarin for chronic anticoaguation Plan to restart warfarin hopefully tomorrow if okay with surgery-would start with usual home doses without loading dose given recent surgery Check INR in the morning for baseline (6) Benign enlargement of prostate: Plan: typically without LUTS (7) long-term (current) use of anticoagulants: Plan: warfarin for afib Plan With elevated estimated blood loss of surgery there is no chemoprophylaxis planned at this current time. At 1 point time the patient will need to be begin his warfarin therapy for his atrial fibrillation thromboembolic prophylaxis. Until that end we will use teds and SCDs Admission and Anticipated Discharge Date Admission Date: April 27, 2022 Supervising Physician Co-Signing Physician Notes PA Supervision Note: I did not personally see or examine the patient today, but I verified all yeung points of QIAN Talley's assessment and plan with the following exceptions/additions: None Subjective Patient was seen and evaluated by myself at bedside. He reports feeling much better at this time. He states that he now has sensation to his RIGHT leg which is the first he is experienced since June of this year. He just completed breakfast and reports feeling very well overall. Review of Systems Review of Systems: A complete 10 point review of systems was reviewed with the patient with pertinent positives and negatives as per history of present illness. All else were negative. Physical Exam Physical Exam: VITAL SIGNS - Vital signs and nursing notes were reviewed. GENERAL - 77-year-old male appearing his stated age and in noticeable discomfort throughout the exam. NECK - FROM of the cervical spine. LUNGS - CTA bilaterally. No wheezes, rales, or rhonchi noted. HEART - RRR. No murmurs, rubs, or gallops appreciated. ABDOMEN - Abdominal contour protuberant without pulsations or visible masses. BS normoactive all four quadrants. No tenderness, palpable masses, hepatosplenomegaly, or ascites noted. MUSCULOSKELETAL -dressing intact to the lumbar spine area serosanguineous drainage noted under the dressing. NANETTE drain in place. Patient with good ROM of the thoracolumbar spine. NEUROLOGIC - SENSORY: Spinothalamic tract was found to be intact with ability to discriminate sharp versus dull sensation at the level of hip joint down do the great toe. No sensory defects of the dorsal column were appreciated utilizing light touch for evaluation. CEREBELLAR: Pt able to perform rapid alternating movements of the feet. EXTREMITIES - Range of Motion - No tremors, ticks, or fasciculations of the lower extremities noticed during inspection. FROM of the lower extremities. Pt had +5/5 strength appreciated bilaterally in the lower extremities against examiner's resistance. VASCULAR - Capillary refill of the great toe was brisk. No mottling or blanching of the extremities present. +3/5 dorsalis pedis pulses palpated bilaterally. Results & Data Results & Data ([facility]) Vital Signs (Past 12 Hours) Vital Signs Temp Pulse Resp BP Pulse Ox O2 Del Method O2 Flow Rate 04/28/22 08:00 Room Air 04/28/22 07:05 36.6 C 83 16 153/85 H 93 Room Air 04/28/22 02:25 36.5 C 80 18 134/78 98 Nasal Cannula 2
[2022-04-28] MEDS: FUROSEMIDE 80 MG TAB PO SCH (17:44)
[2022-04-28] MEDS: carvediloL 25 MG TAB PO SCH (20:41)
[2022-04-28] MEDS: DOCUSATE SODIUM/SENNA 50/8.6MG TAB PO SCH (20:42)
[2022-04-28] MEDS: ASPIRIN 81 MG ECTAB PO SCH (20:42)
[2022-04-29] MEDS: POLYETHYLENE (MIRALAX) 17 GM PACK PO SCH ×3 (00:14→12:49)
[2022-04-29 06:46] LABS: Basophils # (auto) 0.01 K/uL (0-0.2); Basophils % (auto) 0.1 %; Hematocrit (blood only) 28.4 % (40.1-51.0); Hemoglobin 9.6 g/dl (14.0-18.0); Immature Granulocytes # (auto) 0.09 K/uL (0.00-0.02); Immature Granulocytes % (auto) 0.7 %; Lymphocytes # (auto) 0.61 K/uL (1.2-3.4); Lymphocytes % (auto) 4.6 %; Mean Corpuscular Hemoglobin 33.3 pg (25.0-34.0); Mean Corpuscular Hgb Conc 33.8 g/dL (32.0-36.0); Mean Corpuscular Volume 98.6 fL (80.0-100.0); Monocytes # (auto) 0.95 K/uL (0.24-0.82); Monocytes % (auto) 7.2 %; Neutrophils # (auto) 11.52 K/uL (1.4-6.5); Neutrophils % (auto) 87.4 %; Platelet Count 125 K/uL (130-400); RDW Coefficient of Variation 12.8 % (11.5-14.5); RDW Standard Deviation 46.1 fL (36.4-46.3); Red Blood Count 2.88 M/uL (4.63-6.08); White Blood Count 13.18 K/ul (4.8-10.8)
[2022-04-29 07:03] LABS: Prothrombin Time 10.9 Seconds (9.0-12.0)
[2022-04-29 07:12] LABS: BUN Creatinine Ratio 22.8 (10-20); Calcium 8.1 mg/dl (8.5-10.1); Creatinine Clr Calc Pharmacy 87.6 ml/min; Est GFR (Non-African American) 79.4 ml/min; Magnesium 1.8 mg/dl (1.7-2.4); Potassium 4.1 mmol/L (3.5-5.1)
[2022-04-29] MEDS: carvediloL 25 MG TAB PO SCH (08:38)
[2022-04-29] MEDS: dilTIAZem HCL 240 MG CAPCR PO SCH (08:38)
[2022-04-29] MEDS: lisinopril 20 MG TAB PO SCH (08:38)
[2022-04-29] MEDS: ATORVASTATIN 40 MG TAB PO SCH (08:39)
[2022-04-29] MEDS: FUROSEMIDE 80 MG TAB PO SCH (08:39)
[2022-04-29] MEDS: dexAMETHasone 6 MG in SYRINGE 0 ML IV SCH (08:39)
--- NOTE | 2022-04-29 10:38 | Discharge Summary ---
Date of Service April 29, 2022 Admission HPI Per Admitting Provider This is a 69-year-old male presents with chronic persistent back and leg pain. Failing course of nonoperative care is here for surgical invention. Principal Diagnosis Lumbar spinal stenosis with herniated was pulposis and spondylolisthesis Discharge Data Allergies Allergy/AdvReac Type Severity Reaction Status Date / Time No Known Allergies Allergy Verified 04/20/22 09:01 Consultations 04/27/22 13:06 Consult Medical [Consult Internal Medicine] Routine Procedures Performed Operation Date: 04/27/22 07:45 Actual Procedures p L4-L5, L5-S1 Decompression and Fusion, Spinal Cord Monitoring(Not Applicable) - Gurpreet Flanagan DO Ordered Studies 04/27/22 07:45 FL lumbar spine 2-3V Routine Hospital Course (1) Neurogenic claudication due to lumbar spinal stenosis: Patient with lumbar decompression fusion tolerated this well was taken to orthopedic floor postoperatively postop day 1 is up and ambulating breast postop day #2. NANETTE drain decreasing probably. Pain well controlled. Excellent strength testing. Socially discharged home. Discharge orders and instructions found in chart for further review. Total Time Total Time Spent Total Time Spent (In Minutes): 20 minutes Discharge Plan Discharge Items Patient Disposition: Home - Self-Care Reason For Visit: POST OP Discharge Diagnosis: Lumbar spinal stenosis with neurogenic claudication and herniated nucleus pulposus L4-5 Activity: As commented below Non-emergency contact: Primary Care Provider Call non-emergency contact if: you have any medication questions Follow-up/Referrals: Anika Hyman MD [Primary Care Provider] - Diet: Regular Addtl Attending Provider Instructions: ACTIVITY RECOMMENDATIONS: SELF CARE INSTRUCTIONS AFTER THORACIC/LUMBAR FUSIONS 1. You may walk to your tolerance. It is good exercise for your legs and back. Expect some back and intermittent leg aches and pains. 2. You may perform "counter-top" level activities (make a sandwich, ole with a project, etc.). 3. No bending or lifting of more than 10 pounds or back twisting of any nature (roll like a log when turning in bed). 4. You may ride in a car for 20-30 minutes at a time. No driving until after your first visit with your doctor. 5. Frequent changes of position and restricting sitting to 30 minutes at a time will help limit the amount of back spasms and stiffness you may experience. 6. You may discontinue the use of ambulatory aids (cane, crutches, etc.) once your strength and confidence allow. 7. 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 Do not take a tub bath, sit in a hot tub or go into a swimming pool until after your first recheck in the office. SPECIAL CARE INSTRUCTIONS: VERY IMPORTANT TO READ AND REVIEW A. Your surgical incision has been closed with a cosmetic suture under the skin that will dissolve in about 6 weeks. In 14 days, you can use a pair of clean scissors and cut the suture that is left outside of the skin at the ends of your incision. 1. The small skin tapes can be removed 7 days after surgery if they have not fallen off by that point. 2. You may keep the wound open to air as much as possible to promote healing after post-op day number 5 unless told otherwise by your doctor. 3. If you think the wound looks like it is becoming infected (redness or worsening drainage) and/or you are experiencing fever, chill or worsening back pain and muscle spasms, contact the office so that we may evaluate you as soon as possible. B. Complications are uncommon, but please contact us if you have any signs or symptoms of: 1. wound infection (fever higher than 102.5 degrees F, redness, separation of wound, drainage, or increasing pain from the incision) 2. blood clots in legs (pain, swelling, redness and warmth in legs) 3. urinary tract infection (fever higher than 102.5 degrees F, burning upon urination or increased frequency of urination) 4. nerve problems (inability to walk on your toes or heels, numbness, loss of bowel or bladder control) 5. any other symptoms that concern you C. Please call the office at if you have any concerns or questions about your operation or recovery. D. No smoking! Smoking drastically decreases the chance of a solid fusion. E. Do not take any anti-inflammatory medications (Indocin, Advil, Motrin, Aspirin, Naprosyn, etc.) as these may inhibit the chance of a solid fusion. Tylenol is okay to take for pain. MANAGING PAIN AFTER SPINAL SURGERY 1. Narcotic medication is intended for short-term use and will be provided for surgical pain. Surgical pain usually lasts for a period of 4-6 weeks. Narcotic medication includes Percocet, Vicodin, Darvocet, Tylenol #3 or Lortab. 2. Longer-term pain is more appropriately treated with non-narcotic medication such as Tylenol ES. 3. Muscle spasm is not appropriately treated with narcotics. Muscle relaxers such as Soma, Flexeril or Skelaxin can be used along with Tylenol ES. 4. Remember that we all live with some "aches and pains". This is not unusual or uncommon after an injury or as we get older. a. Back pain is expected and may include muscle spasms for 4 to 6 weeks after surgery. The pain should gradually improve. If the pain worsens for no apparent reason, please contact the office. b. Intermittent leg pain may also be experienced and should not be concerned about unless it worsens for no apparent reason. If so, please contact the office. 5. We will provide appropriate medication within the normal guidelines of their prescribed use. We will also be very cautious and aware of potential abuse and extended duration of patients' medication needs. a. Pain medications are for your comfort and to assist with sleep and rest so that the tissue can heal. They are not provided in order to return to normal activity and should not be used through the day. To do so or worsening pain at night can result from ongoing tissue damage and development of tolerance to the prescribed medicine. 6. Please allow 2-3 days to process refills. Prescriptions will not be mailed but must be picked up at the office. FOLLOW UP VISIT: Keep your scheduled follow-up appointment. Any questions, please call the office at . Pending Studies at Discharge: No Stand-Alone Forms: [facility] [employer], Smoking Cessation Medications and DC Order Prescriptions: New oxycodone 5 mg tablet 5 mg PO Q6H PRN (Reason: pain, severe) Qty: 30 0RF tramadol 50 mg tablet 50 mg PO Q6H PRN (Reason: pain, moderate) Qty: 30 0RF Continued atorvastatin 80 mg tablet 80 mg PO DAILY Qty: 90 3RF Label Comments: HS diltiazem HCl 240 mg capsule,extended release 24hr 240 mg PO DAILY Qty: 90 3RF Label Comments: QAM lisinopril 40 mg tablet 40 mg PO DAILY Qty: 90 3RF Label Comments: HS carvedilol 25 mg tablet 25 mg PO BID TDVAX 2-2 Lf unit/0.5 mL suspension 0.5 ml IM ONCE Qty: 5 0RF Rx Instructions: Please administer furosemide [Lasix] 80 mg tablet See Rx Instructions .ROUTE .COMPLEX Rx Instructions: 120 mg BID aspirin 81 mg Tablet,Delayed Release (Dr/Ec) 81 mg PO HS warfarin 5 mg tablet 2.5 mg Protocol: Dose Management Condition: Sunday (Week One) Dose/Route: 5 mg Instruction: 1 x 5 mg tablet Condition: Sunday Dose/Route: 5 mg Instruction: 1 x 5 mg tablet Condition: Sunday Dose/Route: 2.5 mg Instruction: 0.5 x 5 mg tablets Condition: Sunday Dose/Route: 5 mg Instruction: 1 x 5 mg tablet Condition: Dose/Route: 2.5 mg Instruction: 0.5 x 5 mg tablets Condition: Sunday Dose/Route: 0 mg Instruction: 0 tablets Condition: Sunday Dose/Route: 0 mg Instruction: 0 tablets Condition: Sunday (Week Two) Dose/Route: 0 mg Instruction: 0 tablets Condition: Sunday Dose/Route: 0 mg Instruction: 0 tablets Condition: Sunday Dose/Route: 0 mg Instruction: 0 tablets Condition: Sunday Dose/Route: 0 mg Instruction: 0 tablets Condition: Dose/Route: 0 mg Instruction: 0 tablets Condition: Sunday Dose/Route: 0 mg Instruction: 0 tablets Condition: Sunday Dose/Route: 0 mg Instruction: 0 tablets Protocol Text: Adjustment Start Date: Sunday04/21/22 INR Value: 2.0 INR Date: 04/21/22 Rx Instructions: 5 mg orally; TAKES WITH DINNER. TAKES 2.5 MG ON SUN & SUN. THEN 5 MG ALL OTHER DAYS. Discharge Orders: Discharge Order (Routine); Ordered 04/29/22 Ordered By: Gurpreet Flanagan Admission Data Admit Date/Time: 04/27/22 10:38 Attending Provider: Gurpreet Flanagan Admit Provider: Gurpreet Flanagan Primary Care Provider: Anika Hyman Other Providers: Niraj Meyer ; Yennifer Quevedo
--- NOTE | 2022-04-29 12:17 | Hospitalist Progress Note ---
Date of Service April 29, 2022 Assessment & Plan (1) Lumbar back pain with radiculopathy affecting right lower extremity: Plan: Patient underwent L4-S1 decompression fusion Dr. Flanagan 04/27 Estimated blood loss of 1.2 L H&H Remains stable Surgical drain in place with serosanguineous drainage Patient is being discharged today and is to resume his coumadin tonight He will continue his previous home dosage of 2.5 mg on Sunday and Sunday and 5mg all other days He states he checks his own INR and coordinates the levels with Dr Read (2) Chronic diastolic HF (heart failure): Plan: Patient has a history of stable chronic diastolic heart failure typically on Coreg 25 twice daily diltiazem 240 daily Lasix 120 mg twice daily. These medications will be continued. Patient hemodynamically stable. Restarted Lasix yesterday (3) Aortic stenosis: Plan: His aortic stenosis is defined as mild with a valve area of 1.3 cm on last echocardiogram which was October 2020 Follow with cardiology as an outpatient (4) S/P CABG x 3: Plan: Patient has no prehospital anginal symptoms he typically takes aspirin atorvastatin and antihypertensive treatment as listed above (5) Atrial fibrillation: Plan: Permanent atrial fibrillation Prehospital patient was atrial fibrillation controlled ventricular rate on coreg 25 mg and warfarin for chronic anticoaguation INR today 1 To restart Coumadin tonight To check INR levels at home Will follow up with cardiology (6) Benign enlargement of prostate: Plan: typically without LUTS (7) half-way (current) use of anticoagulants: Plan: warfarin for afib To restart tonight as stated above Plan Patient is being discharged to home by ortho today To follow up with ortho, PCP and Cardiology Admission and Anticipated Discharge Date Admission Date: April 27, 2022 Supervising Physician Co-Signing Physician Notes PA Supervision Note: I did not personally see or examine the patient today, but I verified all yeung points of QIAN Donnelly's assessment and plan with the following exceptions/additions: None Subjective Patient is awake and sitting up in recliner. He tells me he is being discharged to home today. He still has the surgical drain bulb in place and per patient has had less drainage. He has no complaints today. He is anxious to go home today. Review of Systems Constitutional: no fever, no chills, no body aches and no weight gain Ear, Nose, Mouth, Throat: no ear pain, no dizziness, no nasal congestion and no epistaxis Respiratory: no cough, no dyspnea, no hemoptysis and no wheezing Cardiovascular: + edema; no chest pain, no dyspnea and no palpitations Gastrointestinal: no abdominal pain, no nausea, no vomiting, no hematemesis and no change in bowel habits Integumentary: no rash, no lesions and no new lesions Psychiatric: no anxiety, no confusion and no hallucinations Physical Exam Constitutional: WD/WN, vitals as above Respiratory: normal respiratory effort, lungs clear to auscultation Cardiovascular: Rate/Rhythm: regular rate and regular rhythm Extremities: no calf tenderness trace edema and +2/6 JO Gastrointestinal (Abdomen): normal bowel sounds, soft, nontender, no hepatosplenomegaly Skin: no rashes, warm and dry surgical dressing back clean and dry surgical drain in place Results & Data Results & Data ([facility]) Vital Signs (Past 12 Hours) Vital Signs Temp Pulse Resp BP Pulse Ox O2 Del Method 04/29/22 09:22 Room Air 04/29/22 07:19 36.6 C 67 16 156/91 H 95 Room Air Laboratory Results Abnormal lab results 04/29/22 04/29/22 Range/Units 06:27 06:27 WBC 13.18 H (4.8-10.8) K/ul RBC 2.88 L (4.63-6.08) M/uL Hgb 9.6 L (14.0-18.0) g/dl Hct 28.4 L (40.1-51.0) % Plt Count 125 L (130-400) K/uL Neut # (Auto) 11.52 H (1.4-6.5) K/uL Lymph # (Auto) 0.61 L (1.2-3.4) K/uL Taliaferro # (Auto) 0.95 H (0.24-0.82) K/uL Immature Gran # (Auto) 0.09 H (0.00-0.02) K/uL BUN/Creatinine Ratio 22.8 H (10-20) Glucose 134 H (70-99(Fasting)) mg/dl Calcium 8.1 L (8.5-10.1) mg/dl PG Care Time/CCT Total # of Minutes Spent Total Time Spent with Patient: Total time spent is greater than 50% in coordination of care (as documented) at patient's floor/unit and/or counseling patient: Coding Level of Care Code 35180 Subseq Hosp Care Lvl 2 Diagnoses Lumbar back pain with radiculopathy affecting right lower extremity M54.16 Chronic diastolic HF (heart failure) I50.32 Aortic stenosis I35.0 S/P CABG x 3 Z95.1 Atrial fibrillation I48.91 Benign enlargement of prostate N40.0 half-way (current) use of anticoagulants Z79.01
== END 2022-04-29 17:50 | disposition home or self-care (01) | DRG 454 ==
LOC: ASU 05:57 → 3E 10:38